=== PATIENT | female | born 1995 | race Caucasian/White ===

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

== ENCOUNTER → 2017-03-20 | Outpatient (REF) | payer OTHER ==
[2017-03-20 13:08] LABS: CHLAMYDIA DNA AMPLIFICATION NEGATIVE (NEGATIVE); GC DNA AMPLIFICATION NEGATIVE (NEGATIVE)
== END ==
LOC: M LAB REF 10:34
DX: R10.30 Lower abdominal pain, unspecified (principal)

== ENCOUNTER → 2017-03-24 | Outpatient (CLI) | payer OTHER | LOC: M SMT 08:11 | DX: Z97.5 Presence of (intrauterine) contraceptive device (principal); R10.30 Lower abdominal pain, unspecified | CPT/HCPCS: 76830 ==

== ENCOUNTER → 2017-04-24 | Outpatient (REF) | payer OTHER | LOC: M WUC 19:33 | DX: J06.9 Acute upper respiratory infection, unspecified (principal) ==